=== PATIENT | female | born 1965 | race Caucasian/White ===

== ENCOUNTER 2018-06-08 14:21 | Inpatient (IN) ==
[2018-06-08 15:48] LABS: Baso % (Auto) 0.4 % (0.0-2.0); Eos # (Auto) 0.2 th/mm3 (0.0-0.4); Eos % (Auto) 2.7 % (0.0-4.0); Hematocrit 46.6 % (35.0-46.0); Lymph # (Auto) 2.1 th/mm3 (1.0-4.8); Lymph % (Auto) 30.6 % (9.0-44.0); Mean Corpuscular HGB Conc 34.4 % (32.0-36.0); Mean Corpuscular Hemoglobin 28.5 pg (27.0-34.0); Mean Platelet Volume 9.6 fL (7.0-11.0); Mono # (Auto) 0.6 th/mm3 (0.0-0.9); Mono % (Auto) 8.6 % (0.0-8.0); Neut % (Auto) 57.7 % (16.0-70.0); Platelet Count 256 th/mm3 (150-450); Red Blood Count 5.61 mil/mm3 (4.00-5.30)
[2018-06-08 16:00] LABS: Alanine Aminotransferase 46 U/L (10-53); Albumin 4.5 g/dL (3.4-5.0); Anion Gap 12 meq/L (5-15); Aspartate Aminotransferase 31 U/L (15-37); Blood Urea Nitrogen 12 mg/dL (7-18); Carbon Dioxide 27.8 meq/L (21.0-32.0); Chloride 102 meq/L (98-107); Glomerular Filtration Rate 60 mL/min (>89); Glucose,Random 85 mg/dL (74-106); Potassium 3.3 meq/L (3.5-5.1); Sodium 142 meq/L (136-145)
[2018-06-08 16:01] LABS: Alcohol 3 mg/dL (0-5)
[2018-06-08 16:09] LABS: Alkaline Phosphatase 153 U/L (45-117); Total Protein 8.5 g/dL (6.4-8.2)
--- NOTE | 2018-06-08 16:11 | ED ---
HPI General Chief Complaint: Psychiatric Symptoms Stated Complaint: Psych Eval/VCSO Time Seen by Provider: 06/08/18 15:16 Source: patient and other ( act report) Mode of arrival: ambulatory Limitations: no limitations History of Present Illness HPI Narrative: 53-year-old female presents to the emergency department under Anne act. She was Anne acted by her primary care doctor Kenya Ramos. According to the act report the patient has had years of depression, auditory hallucinations times 2 months, has made several plans for suicide, and has not kept follow-up appointments times 2 years. On examination of the patient patient states that she has been feeling down and depressed for 2-1/2 years after her 2-1/2 years ago. She has had instances where she dropped a bottle of pills in her hands and stared at them with thought of wanting to harm herself. She was on Celexa for her depression and has stopped taking it 2-1/2 weeks ago because she could not get her prescription refilled. Says her symptoms have worsened since not taking her Celexa. Denies suicidal or homicidal ideations. Denies history of suicidal attempts, although she has had thoughts and action. Denies auditory visual hallucinations. Reports occasional marijuana use. Occasional alcohol use. Denies tobacco use. No treatments tried. Aggravated by of and discontinuation of Celexa. No known relieving factors. Onset unknown. Duration chronic. Denies chest pain, shortness breath, abdominal pain, nausea, vomiting, change in urine or stool. History of hypertension and has not taken medication in 2 years. History of hypercholesterolemia and migraines. Primary CARE providers Dr. Kenya Ramos. No known allergies. Has no other medical complaints. No other modifying factors or associated signs and symptoms. Related Data Previous Rx's Medication Instructions Recorded amlodipine [Norvasc] 10 mg PO DAILY 30 Days #30 tab 06/12/18 atorvastatin [Lipitor] 10 mg PO HS 30 Days #30 tab 06/12/18 sertraline [Zoloft] 50 mg PO DAILY 30 Days #30 tab 06/12/18 Allergies Allergy/AdvReac Type Severity Reaction Status Date / Time No Known Allergies Allergy Verified 06/08/18 14:31 Review of Systems ROS: all other systems reviewed are negative [facility] Medical History Medical History Depression (Acute) High cholesterol (Acute) Hypertension (Acute) Migraines (Acute) Surgical History Surgical History Hx of appendectomy (Acute) Social History Social History Substance History: Past History Second Hand Smoke Exposure: No Smoking Status: Former smoker How Often Do You Have a Drink Containing Alcohol: Monthly or less Recent Travel in [facility] within the Last 8 Weeks: No Recent Out of Country Travel within the Last 8 Weeks: No Substance Abuse Detail Marijuana: Substance Use Status: Active Route Used Substance Abuse: Inhalation Last Used: 06/05/18 Immunization History Tetanus Immunization: Unsure Exam Narrative Exam Narrative: GENERAL: Well-nourished, well-developed female patient , in no acute distress SKIN: Warm and dry. HEAD: Atraumatic. Normocephalic. EYES: Pupils equal and round. ENT: Mucosa pink and moist. NECK: Supple. Trachea midline. CARDIOVASCULAR: Regular rate and rhythm. No murmur appreciated. RESPIRATORY: No accessory muscle use. Clear to auscultation. Breath sounds equal bilaterally. GASTROINTESTINAL: Abdomen soft, non-tender, nondistended. Hepatic and splenic margins not palpable. Bowel sounds are active 4 quadrants. MUSCULOSKELETAL: No obvious deformities. No clubbing. No cyanosis. No edema. BACK: No CVA tenderness. NEUROLOGICAL: Awake and alert. Oriented 3. No obvious cranial nerve deficits. Motor grossly within normal limits. Normal speech. Moves all extremities. 5/5 strength to all extremities. PSYCHIATRIC: No delusional thought processes. No hallucinations. Course Initial Documented Vital Signs Temperature 98.2 F 06/08/18 14:32 Pulse Rate 95 H 06/08/18 14:32 Respiratory Rate 16 06/08/18 14:32 Blood Pressure 137/91 H 06/08/18 14:32 Pulse Oximetry 98 06/08/18 14:32 Last Documented Vital Signs Temperature 97.7 F 06/12/18 04:57 Pulse Rate 89 06/12/18 04:57 Respiratory Rate 16 06/12/18 04:57 Blood Pressure 178/84 H 06/12/18 04:57 Pulse Oximetry 100 06/12/18 04:57 Medical Decision Making MDM Narrative Medical decision making narrative: Patient presents under a Anne act. Physical examination and vital signs are essentially unremarkable. Patient has no medical complaints to report. Psych screen has been ordered. If the laboratory results are unremarkable, the patient will be medically cleared for psychiatric evaluation and disposition. Medical Screen Exam Complete: Yes Emergency Medical Condition: Yes Differential Diagnosis Differential Diagnosis: Depression, anxiety, adjustment disorder, medical clearance for psychiatric evaluation Lab Data Result diagrams: 06/08/18 14:36 06/10/18 07:23 Lab Results 06/08/18 06/08/18 06/08/18 Range/Units 14:36 14:36 14:36 WBC 7.0 (4.0-11.0) th/mm3 RBC 5.61 H (4.00-5.30) mil/mm3 Hgb 16.0 H (11.6-15.3) gm/dL Hct 46.6 H (35.0-46.0) % MCV 83.0 (80.0-100.0) fL MCH 28.5 (27.0-34.0) pg MCHC 34.4 (32.0-36.0) % RDW 14.0 (11.6-17.2) % Plt Count 256 (150-450) th/mm3 MPV 9.6 (7.0-11.0) fL Neut % (Auto) 57.7 (16.0-70.0) % Lymph % (Auto) 30.6 (9.0-44.0) % [place] % (Auto) 8.6 H (0.0-8.0) % Eos % (Auto) 2.7 (0.0-4.0) % Baso % (Auto) 0.4 (0.0-2.0) % Neut # (Auto) 4.0 (1.8-7.7) th/mm3 Lymph # (Auto) 2.1 (1.0-4.8) th/mm3 [place] # (Auto) 0.6 (0.0-0.9) th/mm3 Eos # (Auto) 0.2 (0.0-0.4) th/mm3 Baso # (Auto) 0.0 (0.0-0.2) th/mm3 WBC Differential . Differential Comment Auto diff final Sodium 142 (136-145) meq/L Potassium 3.3 L (3.5-5.1) meq/L Chloride 102 (98-107) meq/L Carbon Dioxide 27.8 (21.0-32.0) meq/L Anion Gap 12 (5-15) meq/L BUN 12 (7-18) mg/dL Creatinine 0.97 (0.50-1.00) mg/dL Estimated GFR 60 L (>89) mL/min Random Glucose 85 (74-106) mg/dL Calcium 9.0 (8.5-10.1) mg/dL Total Bilirubin 0.4 (0.2-1.0) mg/dL AST 31 (15-37) U/L ALT 46 (10-53) U/L Alkaline Phosphatase 153 H (45-117) U/L Total Protein 8.5 H (6.4-8.2) g/dL Albumin 4.5 (3.4-5.0) g/dL Triglycerides (42-150) mg/dL Cholesterol (120-200) mg/dL LDL Cholesterol, Calc (0-99) mg/dL HDL Cholesterol (40.0-60.0) mg/dL Cholesterol/HDL Ratio Ratio TSH 2.180 (0.358-3.740) uIU/mL Salicylates Less than 1.7 L (2.8-20.0) mg/dL Urine Opiates Screen (Neg) Acetaminophen Less than 2.0 L (10.0-30.0) mcg/mL Ur Barbiturates Screen (Neg) Ur Amphetamines Screen (Neg) U Benzodiazepines Scrn (Neg) Urine Cocaine Screen (Neg) U Cannabinoids Screen (Neg) Serum Alcohol 3 (0-5) mg/dL 06/08/18 06/10/18 06/10/18 Range/Units 15:16 07:23 07:23 WBC (4.0-11.0) th/mm3 RBC (4.00-5.30) mil/mm3 Hgb (11.6-15.3) gm/dL Hct (35.0-46.0) % MCV (80.0-100.0) fL MCH (27.0-34.0) pg MCHC (32.0-36.0) % RDW (11.6-17.2) % Plt Count (150-450) th/mm3 MPV (7.0-11.0) fL Neut % (Auto) (16.0-70.0) % Lymph % (Auto) (9.0-44.0) % [place] % (Auto) (0.0-8.0) % Eos % (Auto) (0.0-4.0) % Baso % (Auto) (0.0-2.0) % Neut # (Auto) (1.8-7.7) th/mm3 Lymph # (Auto) (1.0-4.8) th/mm3 [place] # (Auto) (0.0-0.9) th/mm3 Eos # (Auto) (0.0-0.4) th/mm3 Baso # (Auto) (0.0-0.2) th/mm3 WBC Differential Differential Comment Sodium 141 (136-145) meq/L Potassium 3.5 (3.5-5.1) meq/L Chloride 104 (98-107) meq/L Carbon Dioxide 31.1 (21.0-32.0) meq/L Anion Gap 6 (5-15) meq/L BUN 9 (7-18) mg/dL Creatinine 0.80 (0.50-1.00) mg/dL Estimated GFR 75 L (>89) mL/min Random Glucose 100 (74-106) mg/dL Calcium 9.1 (8.5-10.1) mg/dL Total Bilirubin (0.2-1.0) mg/dL AST (15-37) U/L ALT (10-53) U/L Alkaline Phosphatase (45-117) U/L Total Protein (6.4-8.2) g/dL Albumin (3.4-5.0) g/dL Triglycerides 106 (42-150) mg/dL Cholesterol 205 H (120-200) mg/dL LDL Cholesterol, Calc 132 H (0-99) mg/dL HDL Cholesterol 51.6 (40.0-60.0) mg/dL Cholesterol/HDL Ratio 3.97 Ratio TSH (0.358-3.740) uIU/mL Salicylates (2.8-20.0) mg/dL Urine Opiates Screen Neg (Neg) Acetaminophen (10.0-30.0) mcg/mL Ur Barbiturates Screen Neg (Neg) Ur Amphetamines Screen Neg (Neg) U Benzodiazepines Scrn Pos H (Neg) Urine Cocaine Screen Neg (Neg) U Cannabinoids Screen Pos H (Neg) Serum Alcohol (0-5) mg/dL Discharge Plan Discharge Disposition Patient Disposition: 30 Still Patient Discharge Condition Condition: Stable Discharge Order Discharge Orders: Discharge Order (Routine); Ordered 06/12/18 Ordered By: Marlon Rubin Physicians Team ED Provider: Dioni Melendez ED Midlevel Provider: Marcelle Miller Primary Care Provider: Kenya Ramos Attending Provider: Marlon Rubin Other Providers: Danitar High Service Status ED Status: Left Department Discharge Information Discharge Date/Time: 06/08/18 20:15
[2018-06-08 16:29] LABS: Amphetamine Screen,Urine Neg (Neg); Barbiturate Screen,Urine Neg (Neg); Cannabinoid Screen,Urine Pos (Neg); Cocaine Screen,Urine Neg (Neg)
[2018-06-08 16:31] LABS: Opiate Screen,Urine Neg (Neg)
[2018-06-08] MEDS ORDERED: Aluminum/Magnesium/Simethacone Susp 30 ML UDC PO PRN (19:53)
[2018-06-08] MEDS ORDERED: Amitriptyline 25 MG Tablet PO SCH (21:00)
[2018-06-09] MEDS ORDERED: Influenza (Quadrivalent) Vaccine 0.5 ML Syringe IM ONE (00:45)
--- NOTE | 2018-06-09 11:42 | P.HPPSY ---
<Tania Manzo - Last Filed: 06/09/18 12:35> Provisional Diagnosis Admission Date: June 08, 2018 21:21 [place] I.: Major Depressive, Episode, Major Depression Disorder, Double Depression, Suicidal Ideation, [place] II.: deferred [place] III.: Hypertension, hypercholesterolemia [place] IV.: Father and aunt 10 years ago( 6 weeks apart) of 2 1/2 years ago [place] V.: 65 Competence Certification of Person's Competence To Provide Express and Informed Consent I have personally examined Parisa Crandall, a person being served at [facility] [email or web address]] on, June 09, 2018 1104. Express and informed consent means consent voluntarily given in writing, by a competent person, after sufficient explanation and disclosure of the subject matter involved to enable the person to make a knowing and willful decision without any element of force, fraud, deceit, duress, or other form of constraint or coercion. This person is 18 years of age or older, is not now known to be incompetent to consent to treatment with a guardian advocate, and does not have a health care surrogate or proxy currently making medical treatment decisions. I have found this person to be one of the following: [] Competent to provide express and informed consent, as defined above, for voluntary admission to this facility and is competent to provide express and informed consent for treatment. He/she has the consistent capacity to make well reasoned, willful, and knowing decisions concerning his or her medical or mental health treatment. The person fully and consistently understands the purpose of the admission for examination/placement and is fully capable of personally exercising all rights assured under [place] [] Incompetent to provide express and informed consent to voluntary admission, and this is incompetent to provide express and informed consent to treatment. The person must be transferred to involuntary status and a petition for a guardian advocate filed with the Circuit Court. [] Refusing to provide express and informed consent to voluntary admission but is competent to provide express and informed consent for treatment. The person must be discharged or transferred to involuntary status. Form shall be completed within 24 hours of a person's arrival at the receiving facility and filed in the clinical record of each person: 1. Admitted on a voluntary basis 2. Permitted to provide express and informed consent to his/her own treatment 3. Allowed to transfer from involuntary to voluntary status 4. Prior to permitting a person to consent to his or her own treatment after having been previously found incompetent to consent to treatment. History of Present Illness Capacity: Has capacity Chief Complaint: Ms. Meeks is here under the BA by her PCP History of Present Illness: Ms. Constantino Lawrence is a 53 year old female who comes to inpatient at [facility] under a BA by her PCP, Dr. Kenya Ramos. BA is due to depression, suicidal ideation, and auditroy hallucinations for the past 2 months. Her depression gbegan 10 years ago with the of her father and aunt, all within a few weeks of eachother. She was prescribed by her PCP an unknown dose citalopram. 2 1/2 years ago, her passed and was then perscribed 25 mg Xanx PRN nad her dose of citalopram was doubled. She at that time also went to Hospice counselling for 3 session, but stopped due to it "not being a good fit" for her. 2 weeks ago, her prescriptions of Xanax and citalopram ran-out. She states that her "senses feel amplified"-noises seem louder, lights are brighter, etc. She has had difficulty sleeping, decreased concentration, decreased enegery, anhedonia, and increased anxiety. She denies any previous physcial, sexuial or emotional abuse, denies elf-harm. suicidal ideation or attempts and denies an current SI or HI. Last week she began journelling, which seemed to help her depression. FMH: [id number] history if postive for an aunt with psychosis PMH: HTN, Hypercholestrolemia, migraines Surgical: appendectomy Social: reitired Special exceptional needs teacher, lives alone with 3 dogs, good social support from Sister and family in town, alcohol and marjuana use, previous cocaine use and tobacco use Legal: previous arrest in 80s due to stealing money from employer to buy cocaine Meds: amytriptyline, citalopram, Xanax ROS: diaphoresis, denies flight of ideas, denies agitation, denies increased irritablity, denies changes in bowel and bladder movements - Inpatient Certification I certify that the inpatient services were ordered in accordance with Medicare regulations governing the order. This includes certification that hospital inpatient services are reasonable and necessary and in the case of services not specified as inpatient-only under 42 CFR 419.22(n), that they are appropriately provided as inpatient services in accordance to with the 2-midnight benchmark under 43 CFR 412.3(e) I certify that inpatient psychiatric hospital services are medically necessary. Evaluation and treatment and/or diagnostic testing are expected to improve the patient's condition. The patient needs on a daily basis, active treatment furnished directly by or requiring the supervision of inpatient psychiatric facility personnel. PMFSH - History History Provided By: Patient - Medical History Medical History: Medical History (Last Reviewed 06/08/18 @ 16:28 by TALIA Trujillo) Depression High cholesterol Hypertension Migraines - Surgical History Surgical History: Surgical History (Last Updated 06/08/18 @ 14:36 by Gloria Steward) Hx of appendectomy - Tobacco History Second Hand Smoke Exposure: No Tobacco Use In Past 30 Days: No Smoking Status: Former smoker - Alcohol History How Often Do You Have a Drink Containing Alcohol: Monthly or less - Substance Use History Substance History: Past History - Substance Use Type Marijuana Status: Active Route Used: Inhalation Last Used: 06/05/18 Reason for Use: Sleep Crack/Cocaine Status: Sustained Remission Comment: Cocaine abuse not since the - Travel History Recent Travel in the [facility] Within the Last 8 Weeks: No Recent Travel Out of the Country Within the Last 8 Weeks: No - Immunization History Tetanus Immunization: >5 Years Hx Influenza Vaccine This Season: No Medications and Allergies Allergies Allergy/AdvReac Type Severity Reaction Status Date / Time No Known Allergies Allergy Verified 06/08/18 14:31 Home Medications Medication Instructions Recorded Confirmed Type alprazolam [Xanax] 0.5 mg PO PRN 06/08/18 06/08/18 History amitriptyline 25 mg PO HS 06/08/18 06/08/18 History Active Medications: Active Medications Acetaminophen (Tylenol) 650 mg PO Q4H PRN PRN Reason: Pain 1-5 or Temp >101F Al Hydrox/Mg Hydrox/Simethicone (Mag-Al Plus Susp Liq) 30 ml PO Q6H PRN PRN Reason: DYSPEPSIA Al Hydroxide/Mg Hydroxide (Milk Of Magnesia Liq) 30 ml PO DAILY PRN PRN Reason: CONSTIPATION Amitriptyline HCl (Elavil) 25 mg PO HS MARGE Last Admin: 06/08/18 21:19 Dose: 25 mg Diphenhydramine HCl (Benadryl) 50 mg PO Q6H PRN PRN Reason: For mild anxiety and/or EPS Diphenhydramine HCl (Benadryl Inj) 50 mg IM Q6H PRN PRN Reason: For mild anxiety and/or EPS Hydroxyzine HCl (Atarax) 50 mg PO Q6H PRN PRN Reason: ANXIETY Last Admin: 06/08/18 21:19 Dose: 50 mg Results - Labs CBC & Chem 7: 06/08/18 14:36 06/08/18 14:36 Labs: Laboratory Results - last 24 hr 06/08/18 06/08/18 06/08/18 14:36 14:36 14:36 WBC 7.0 RBC 5.61 H Hgb 16.0 H Hct 46.6 H MCV 83.0 MCH 28.5 MCHC 34.4 RDW 14.0 Plt Count 256 MPV 9.6 Neut % (Auto) 57.7 Lymph % (Auto) 30.6 [place] % (Auto) 8.6 H Eos % (Auto) 2.7 Baso % (Auto) 0.4 Neut # (Auto) 4.0 Lymph # (Auto) 2.1 [place] # (Auto) 0.6 Eos # (Auto) 0.2 Baso # (Auto) 0.0 WBC Differential . Differential Comment Auto diff final Sodium 142 Potassium 3.3 L Chloride 102 Carbon Dioxide 27.8 Anion Gap 12 BUN 12 Creatinine 0.97 Estimated GFR 60 L Random Glucose 85 Calcium 9.0 Total Bilirubin 0.4 AST 31 ALT 46 Alkaline Phosphatase 153 H Total Protein 8.5 H Albumin 4.5 TSH 2.180 Salicylates Less than 1.7 L Urine Opiates Screen Acetaminophen Less than 2.0 L Ur Barbiturates Screen Ur Amphetamines Screen U Benzodiazepines Scrn Urine Cocaine Screen U Cannabinoids Screen Serum Alcohol 3 06/08/18 15:16 WBC RBC Hgb Hct MCV MCH MCHC RDW Plt Count MPV Neut % (Auto) Lymph % (Auto) [place] % (Auto) Eos % (Auto) Baso % (Auto) Neut # (Auto) Lymph # (Auto) [place] # (Auto) Eos # (Auto) Baso # (Auto) WBC Differential Differential Comment Sodium Potassium Chloride Carbon Dioxide Anion Gap BUN Creatinine Estimated GFR Random Glucose Calcium Total Bilirubin AST ALT Alkaline Phosphatase Total Protein Albumin TSH Salicylates Urine Opiates Screen Neg Acetaminophen Ur Barbiturates Screen Neg Ur Amphetamines Screen Neg U Benzodiazepines Scrn Pos H Urine Cocaine Screen Neg U Cannabinoids Screen Pos H Serum Alcohol Exam Vital signs: Vital Signs 06/08/18 14:32 06/08/18 18:10 06/08/18 22:30 Temperature 98.2 F 97.9 F 98.3 F Pulse Rate 95 H 94 H 92 H Respiratory Rate 16 18 18 Blood Pressure 137/91 H 181/86 H 187/110 H Pulse Oximetry 98 100 99 06/09/18 06:00 Temperature 98.2 F Pulse Rate 91 H Respiratory Rate 18 Blood Pressure 165/85 H Pulse Oximetry 98 Intake & Output 06/08/18 06/09/18 06/09/18 18:59 06:59 18:59 Intake Total 240 / 240 Balance 240 / 240 Weight 99.79 kg 107.1 kg Intake: Oral 240 / 240 Other: Weight On Admission 107.1 kg - Constitutional no acute distress - Routine HEENT Exam Head: Present: normocephalic Eye: Present: EOMI, PERRL ENT: Present: mucous membranes moist - Routine Neurological Exam Present: alert, oriented X3 Mental Status Examination Appearance: Appropriate Consciousness: Alert Orientation: x4 Motor Activity: Normal gait Speech: Unremarkable Language: Adequate Fund of Knowledge: Adequate Attention and Concentration: Adequate Memory: Unremarkable Mood: Appropriate, Other (states that "i feel ok") Thought Process & Associations: Intact, Logical Thought Content: Appropriate Hallucination Type: None Delusion Type: None Suicidal Ideation: No Suicidal Plan: No Suicidal Intention: No Homicidal Ideation: No Homicidal Plan: No Homicidal Intention: No Insight: Adequate Judgment: Adequate Assessment and Plan - Plan Plan: Estimated LOS: [] days Prescribe Effexor 37.5 mg/ day if BP is controlled for depression and anxiety Prescibe Zoloft if BP is uncontrolled for depression and anxiety <Marlon Rubin - Last Filed: 06/10/18 05:58> Provisional Diagnosis Admission Date: June 08, 2018 21:21 [place] I.: Major depressive disorder [place] V.: 40 Competence Certification of Person's Competence To Provide Express and Informed Consent I have personally examined Parisa Rai Raz, a person being served at [facility] [[email or web address]] on, June 10, 2018 0535. Express and informed consent means consent voluntarily given in writing, by a competent person, after sufficient explanation and disclosure of the subject matter involved to enable the person to make a knowing and willful decision without any element of force, fraud, deceit, duress, or other form of constraint or coercion. This person is 18 years of age or older, is not now known to be incompetent to consent to treatment with a guardian advocate, and does not have a health care surrogate or proxy currently making medical treatment decisions. I have found this person to be one of the following: [xxx] Competent to provide express and informed consent, as defined above, for voluntary admission to this facility and is competent to provide express and informed consent for treatment. He/she has the consistent capacity to make well reasoned, willful, and knowing decisions concerning his or her medical or mental health treatment. The person fully and consistently understands the purpose of the admission for examination/placement and is fully capable of personally exercising all rights assured under [place] [] Incompetent to provide express and informed consent to voluntary admission, and this is incompetent to provide express and informed consent to treatment. The person must be transferred to involuntary status and a petition for a guardian advocate filed with the Circuit Court. [] Refusing to provide express and informed consent to voluntary admission but is competent to provide express and informed consent for treatment. The person must be discharged or transferred to involuntary status. Form shall be completed within 24 hours of a person's arrival at the receiving facility and filed in the clinical record of each person: 1. Admitted on a voluntary basis 2. Permitted to provide express and informed consent to his/her own treatment 3. Allowed to transfer from involuntary to voluntary status 4. Prior to permitting a person to consent to his or her own treatment after having been previously found incompetent to consent to treatment. History of Present Illness History of Present Illness: Patient is a 53-year-old woman, , domiciled alone, retired, with a past psychiatric history of depression, anxiety, no previous psychiatric admissions, no previous suicide attempt or self-injurious behavior with a substance use history significant for remote cocaine use, current marijuana use in the past medical history of hypertension hyperlipidemia who was brought under Anne act started by her primary care doctor due to worsening depressive symptoms, auditory hallucinations and recent suicidal ideation which patient was admitted to the inpatient psychiatry for further evaluation and management. As per Anne act patient seen by PCP, years of depression, auditory hallucinations for 2 months, suicidal plan. Patient was found in day room noted B, cooperative interviewed with medical student. Patient states that she had gone to refill her medications which pharmacy refused to fill until she was seen by her primary care doctor which prompted her visit. Upon evaluation by her primary care physician recent depressive symptoms along with suicide ideation, concern and place patient on a Anne act and was sent to the ED for further evaluation and management with subsequent admission to the inpatient psychiatry unit. Patient reports her sleep recently has been "up and down" reports decreased appetite and energy and concentration, with decrease pleasure in hobbies and activities, isolating more, denies any feelings of guilt but worsening depressive symptoms for the past 2 weeks. Patient reports feeling hopeless "a little" but denies feeling helpless. Patient also mentions having had suicide ideation for the past 2 weeks as well which on occasion had come close to overdosing which she had tablets in her hands but aborted the plan. Currently patient reports feeling "decent" denying any suicide ideation at this time, denies any homicidal ideation denying any perceptional disturbances or delusions during interview. Rest of psychiatric review of systems negative. Family psychiatric history: Patient reports that with psychotic disorder, denies suicide in the family Past psychiatric history: Previous psychiatric diagnoses depression, anxiety, no previous psychiatric admissions, previous suicide attempt or self-injurious behavior. Patient denies any history of abuse. Denies having mental health provider and his primary by primary care doctor. Patient reports having undergone a grief counseling 2 and half years ago after the of her . Previous medication trials include citalopram, alprazolam, amitriptyline. Substance use history: Remote use of cocaine, current marijuana use 3 times per week, reports alcohol use twice per month usually 3 or 4 drinks at a time. Past medical history: Hypertension, hyperlipidemia, migraines Allergies: NKDA Social history: , domiciled alone, unemployed, retired six years ago. - Inpatient Certification I certify that the inpatient services were ordered in accordance with Medicare regulations governing the order. This includes certification that hospital inpatient services are reasonable and necessary and in the case of services not specified as inpatient-only under 42 CFR 419.22(n), that they are appropriately provided as inpatient services in accordance to with the 2-midnight benchmark under 43 CFR 412.3(e) I certify that inpatient psychiatric hospital services are medically necessary. Evaluation and treatment and/or diagnostic testing are expected to improve the patient's condition. The patient needs on a daily basis, active treatment furnished directly by or requiring the supervision of inpatient psychiatric facility personnel. Estimated Total Length of Stay (Days): 7 Plans for Post Hospital Care: Not yet determined Review of Systems All other systems reviewed negative except as stated in HPI PMFSH - History History Provided By: Medical Record - Medical History Medical History: Medical History (Last Reviewed 06/08/18 @ 16:28 by TALIA Trujillo) Depression High cholesterol Hypertension Migraines - Surgical History Surgical History: Surgical History (Last Updated 06/08/18 @ 14:36 by Gloria Steward) Hx of appendectomy Quality Measures - Psychiatric History Psychological trauma history: denies Violence risk to others in the last 6 months: low Violence risk to self in the last 6 months: elevated due to recent suicidal ideation - Substance Abuse History Drug or alcohol use in the past 12 months: see HPI - Patient Strengths Patient's strengths (minimum of 2): verbal and communicative Medications and Allergies Active Medications: Active Medications Acetaminophen (Tylenol) 650 mg PO Q4H PRN PRN Reason: Pain 1-5 or Temp >101F Last Admin: 06/09/18 12:57 Dose: 650 mg Al Hydrox/Mg Hydrox/Simethicone (Mag-Al Plus Susp Liq) 30 ml PO Q6H PRN PRN Reason: DYSPEPSIA Last Admin: 06/09/18 21:11 Dose: 30 ml Al Hydroxide/Mg Hydroxide (Milk Of Magnesia Liq) 30 ml PO DAILY PRN PRN Reason: CONSTIPATION Amlodipine Besylate (Norvasc) 5 mg PO DAILY MARGE Diphenhydramine HCl (Benadryl) 50 mg PO HS PRN PRN Reason: INSOMNIA Last Admin: 06/09/18 21:11 Dose: 50 mg Lorazepam (Ativan) 1 mg PO Q6H PRN PRN Reason: ANXIETY Potassium Chloride (K-Dur) 20 meq PO DAILY MARGE Stop: 06/13/18 08:59 Sertraline HCl (Zoloft) 50 mg PO DAILY MARGE Results - Labs CBC & Chem 7: 06/08/18 14:36 06/08/18 14:36 Exam Vital signs: Vital Signs 06/09/18 06:00 Temperature 98.2 F Pulse Rate 91 H Respiratory Rate 18 Blood Pressure 165/85 H Pulse Oximetry 98 Intake & Output 06/09/18 06/09/18 06/10/18 06:59 18:59 06:59 Intake Total 240 / 240 Balance 240 / 240 Weight 107.1 kg Intake: Oral 240 / 240 Other: Weight On Admission 107.1 kg Narrative: Patient not noted to be in acute distress, no gross motor abnormalities, no signs of tremor or EPS, no psychomotor agitation or retardation. - Constitutional cooperative Mental Status Examination Mood: Other Affect: Sad Suicidal Ideation: No (Denies but is unreliable to contract for safety at this time) Insight: Fair Judgment: Impulsive Assessment and Plan - Assessment (1) Major depressive disorder Code(s): F32.9 - Major depressive disorder, single episode, unspecified Status : Acute - Plan Plan: Estimated LOS: [] days Patient is a 53-year-old woman who carries a diagnoses depression and anxiety with no previous psychiatric admissions, no previous suicide attempt or self-injurious behavior with a remote history of cocaine use, currently ongoing marijuana use who has been having worsening of depressive symptoms with suicidal ideation and having had recent aborted plan of overdose and continues to be at high risk for self-harm which patient requires inpatient psychiatric stabilization for safety. Patient currently has elevated risk for self-harm due to recent depressive symptoms, suicidal ideation with recent reported possible overdose, has genetic predisposition to mental illness due to history of psychiatric disorder family along with no current outpatient mental health follow-up, not engaged in treatment, limited social support current substance use (marijuana) not engaged in outpatient follow-up and current depressive symptoms affecting functioning which patient is an acute risk for self-harm. Patient will be admitted under voluntary admission, has capacity to consent for treatment. We will start patient on sertraline 25 mg x1 with 50 mg daily thereafter for depression. We will monitor mood and behavior. Social work intervention for psychosocial assessment. Hospitalist consult requested for evaluation of hypertension. EKG ordered. Discharge planning a progress. Justification for Continued Inpatient Stay: At risk of further decompensation at lower level care. <Marlon Rubin - Last Filed: 06/10/18 05:58> (1) Major depressive disorder Qualifiers: Major depression recurrence: recurrent Active/Remission status: currently active Major depression episode severity: severe Psychotic features: without psychotic features Qualified Code(s): F33.2 - Major depressive disorder, recurrent severe without psychotic features
[2018-06-09] MEDS ORDERED: LORazepam 1 MG Tablet PO PRN (12:00)
[2018-06-09] MEDS: Acetaminophen 325 MG Tablet PO PRN (12:57)
[2018-06-09] MEDS ORDERED: Sertraline 50 MG Tablet PO ONE (13:00)
[2018-06-09] MEDS ORDERED: amLODIPine 5 MG Tablet PO ONE (13:31)
--- NOTE | 2018-06-09 14:08 | P.CON ---
History of Present Illness Service: Hospitalist Consult date: 06/09/18 Requesting Physician: Marlon Rubin Reason for Consult: Hypertension Primary Care Provider: Kenya Ramos MD Chief Complaint: Hypertension History of Present Illness: Ms. Granger is a 53-year-old female who was brought to the emergency department under Anne act initiated by patient's primary care physician. Patient apparently has a history of depression, auditory hallucinations. She has contemplated on taking multiple medications in order to hurt herself. Patient apparently has a history of hypertension. However she has not taken her antihypertensive medications as well as statin in a long time. She also has a history of migraine as well as hypercholesterolemia. Hospital service was consulted for medical management. At the time of this interview, patient denies any chest pain, shortness of breath, fever or chills. Denies any changes in bowel or bladder habits. She denies any suicidal or homicidal ideations. Past medical history: Depression, hypertension, hyperlipidemia Past surgical history: Appendectomy Social history: Social drinker. Family history: Milligrams mother had stroke and heart attack. Father had lung cancer. Review of Systems All other systems reviewed negative except as stated in HPI PMFSH - History History Provided By: Patient - Medical History Medical History: Medical History (Last Reviewed 06/08/18 @ 16:28 by TALIA Trujillo) Depression High cholesterol Hypertension Migraines - Surgical History Surgical History: Surgical History (Last Updated 06/08/18 @ 14:36 by Gloria Steward) Hx of appendectomy - Tobacco History Second Hand Smoke Exposure: No Tobacco Use In Past 30 Days: No Smoking Status: Former smoker - Alcohol History How Often Do You Have a Drink Containing Alcohol: Monthly or less - Substance Use History Substance History: Past History - Substance Use Type Marijuana Status: Active Route Used: Inhalation Last Used: 06/05/18 Reason for Use: Sleep Crack/Cocaine Status: Sustained Remission Comment: Cocaine abuse not since the - Travel History Recent Travel in the [place] Within the Last 8 Weeks: No Recent Travel Out of the Country Within the Last 8 Weeks: No - Immunization History Tetanus Immunization: >5 Years Hx Influenza Vaccine This Season: No Medications and Allergies Active Medications: Active Medications Acetaminophen (Tylenol) 650 mg PO Q4H PRN PRN Reason: Pain 1-5 or Temp >101F Last Admin: 06/09/18 12:57 Dose: 650 mg Al Hydrox/Mg Hydrox/Simethicone (Mag-Al Plus Susp Liq) 30 ml PO Q6H PRN PRN Reason: DYSPEPSIA Al Hydroxide/Mg Hydroxide (Milk Of Magnesia Liq) 30 ml PO DAILY PRN PRN Reason: CONSTIPATION Diphenhydramine HCl (Benadryl) 50 mg PO HS PRN PRN Reason: INSOMNIA Lorazepam (Ativan) 1 mg PO Q6H PRN PRN Reason: ANXIETY Sertraline HCl (Zoloft) 50 mg PO DAILY MARGE Allergies Allergy/AdvReac Type Severity Reaction Status Date / Time No Known Allergies Allergy Verified 06/08/18 14:31 Home Medications Medication Instructions Recorded Confirmed Type alprazolam [Xanax] 0.5 mg PO PRN 06/08/18 06/08/18 History amitriptyline 25 mg PO HS 06/08/18 06/08/18 History Physical Exam Vital signs: Vital Signs 06/08/18 14:32 06/08/18 18:10 06/08/18 22:30 Temperature 98.2 F 97.9 F 98.3 F Pulse Rate 95 H 94 H 92 H Respiratory Rate 16 18 18 Blood Pressure 137/91 H 181/86 H 187/110 H Pulse Oximetry 98 100 99 06/09/18 06:00 Temperature 98.2 F Pulse Rate 91 H Respiratory Rate 18 Blood Pressure 165/85 H Pulse Oximetry 98 Intake & Output 06/08/18 06/09/18 06/09/18 18:59 06:59 18:59 Intake Total 240 / 240 Balance 240 / 240 Weight 99.79 kg 107.1 kg Intake: Oral 240 / 240 Other: Weight On Admission 107.1 kg Narrative: GENERAL: This is a well-nourished, well-developed patient, in no apparent distress. SKIN: No rashes, ecchymoses or lesions. Warm and dry. HEAD: Atraumatic. Normocephalic. No temporal or scalp tenderness. EYES: Pupils equal round and reactive. No injection or drainage. ENT: Nose without bleeding, purulent drainage or septal hematoma. Airway patent. NECK: Trachea midline. No lymphadenopathy. Supple, nontender, no meningeal signs. CARDIOVASCULAR: Regular rate and rhythm without murmurs, gallops, or rubs. No JVD. RESPIRATORY: Clear to auscultation. Breath sounds equal bilaterally. No wheezes , rales, or rhonchi. GASTROINTESTINAL: Abdomen soft, non-tender, nondistended. No guarding. MUSCULOSKELETAL: Extremities without clubbing, cyanosis, or edema. NEUROLOGICAL: Awake and alert. Cranial nerves II through XII intact. No focal neurological deficits. Normal speech. Assessment and Plan - Plan This is a 53-year-old female with history of depression, hypertension , hyperlipidemia who was sent to the hospital under Anne act by her primary care physician due to depression. Patient apparently has a history of hypertension and hyperlipidemia but has not been taking her medications for over 2 years. Hypertension -Will start patient on Amlodipine 5mg Qday. -Will add other anti-hypertensive meds as needed. Hyperlipidemia -Will obtain Lipid profile in the AM. -Based on lipid profile, we can consider statin. We can calculate ASCVD score to guide us statin dosing. Mild Hypokalemia - Will give supplemental KCL. Full code. Ambulation. Thank you for the consult. We will continue to follow this patient with you.
[2018-06-10] MEDS: Sertraline 50 MG Tablet PO SCH (08:52)
[2018-06-10] MEDS: amLODIPine 10 MG Tablet PO SCH (08:52)
[2018-06-10 08:53] LABS: Chol/HDL Ratio 3.97 Ratio; HDL Cholesterol 51.6 mg/dL (40.0-60.0)
[2018-06-10] MEDS ORDERED: amLODIPine 5 MG Tablet PO SCH (09:00)
[2018-06-10 09:05] LABS: Calcium 9.1 mg/dL (8.5-10.1); Carbon Dioxide 31.1 meq/L (21.0-32.0); Potassium 3.5 meq/L (3.5-5.1)
--- NOTE | 2018-06-10 13:25 | ECG ---
Date Performed: 06/09/2018 Time Performed: 14:08:34 PTAGE: 53 years EKG: Sinus rhythm LOW QRS VOLTAGE IN PRECORDIAL LEADS MODERATE VOLTAGE CRITERIA FOR LVH, CONSIDER NORMAL VARIANT INFER IOR MYOCARDIAL INFARCTION , OF INDETERMINATE AGE ABNORMAL ECG NO PREVIOUS TRACING DOCTOR: Adryan Mcclelland Interpretating Date/Time 06/10/2018 13:23:57
--- NOTE | 2018-06-10 15:27 | P.PNPSY ---
Subjective Chief Complaint: Ms. Meeks is here under the BA by her PCP Remarks: Reviewed electronic medical records and discussed case with staff. Follow-up was conducted in the patient's room with YULIANA Calloway present. Patient has signed a right of release. Her nurse reports that she has been compliant with her medications and had no behavioral disturbances patient reports that she is upset because "I do not belong here it is making me very depressed". She maintains that she does have some depression relative to her 's however she states, "I love my life I would not kill myself". She she offers her sister is collateral information, Kirstie Meeks [phone]. Patient reports that she is sleeping well and eating "okay". She does become tearful talking about her distress at being on the unit stating, "this was not what I expected". She reports that the other patients have been intrusive, sharing her story was with her, and telling her how she can prolong her stay should she choose. Mental Status Examination Appearance: Appropriate Consciousness: Alert Orientation: x4 Motor Activity: Normal gait Speech: Unremarkable Language: Adequate Fund of Knowledge: Adequate Attention and Concentration: Adequate Memory: Unremarkable Mood: Other Affect: Sad Thought Process & Associations: Intact, Logical Thought Content: Appropriate Hallucination Type: None Delusion Type: None Suicidal Ideation: No (Denies but is unreliable to contract for safety at this time) Suicidal Plan: No Suicidal Intention: No Homicidal Ideation: No Homicidal Plan: No Homicidal Intention: No Insight: Fair Judgment: Impulsive Assessment and Plan - Assessment (1) Major depressive disorder Code(s): F32.9 - Major depressive disorder, single episode, unspecified Status : Acute - Plan Plan: Patient has signed a right of release this morning. She will need to be reevaluated tomorrow. She claims that this was a misunderstanding with her PCP and reports that she has a good support system. Justification for Continued Inpatient Stay: Moving this patient to a less restrictive environment would likely result in decompensation. (1) Major depressive disorder Qualifiers: Major depression recurrence: recurrent Active/Remission status: currently active Major depression episode severity: severe Psychotic features: without psychotic features Qualified Code(s): F33.2 - Major depressive disorder, recurrent severe without psychotic features
--- NOTE | 2018-06-10 15:47 | P.PN ---
Subjective Interval history: Follow-up on patient with hypertension, dyslipidemia. Patient seen and examined. Patient denies any acute medical complaints. She denies any chest pain or shortness of breath. She denies any nausea, vomiting or abdominal pain. She denies any fever or chills. She is upset due to being uncomfortable with the other patients around her the things that are being said. Discussed with Ronny MELGAR, plans to move patient to [address] [place] [address]. Physical Exam Vital signs: Vital Signs 06/10/18 06:00 Temperature 98.3 F Pulse Rate 87 Respiratory Rate 16 Blood Pressure 151/81 H Pulse Oximetry 96 Intake & Output 06/09/18 06/10/18 06/10/18 18:59 06:59 18:59 Intake Total 240 / 240 Balance 240 / 240 Intake: Oral 240 / 240 Narrative: GENERAL: This is a well-nourished, well-developed female patient, in no apparent distress. Awake and alert. SKIN: No rashes, ecchymoses or lesions. Warm and dry. HEAD: Atraumatic. Normocephalic. EYES: Pupils equal round and reactive. No injection or drainage. ENT: Nose without bleeding or purulent drainage. Airway patent. NECK: Trachea midline. CARDIOVASCULAR: Regular rate and rhythm without murmurs, gallops, or rubs. RESPIRATORY: Clear to auscultation. Breath sounds equal bilaterally. No wheezes , rales, or rhonchi. GASTROINTESTINAL: Abdomen soft, non-tender, nondistended. No guarding. MUSCULOSKELETAL: Extremities without clubbing, cyanosis, or edema. NEUROLOGICAL: Awake and alert. Cranial nerves II through XII intact. No focal neurological deficits. Normal speech. PSYCHIATRIC: Appropriate mood and affect. Calm and cooperative. Results - Labs CBC & Chem 7: 06/08/18 14:36 06/10/18 07:23 Laboratory Results - last 24 hr 06/10/18 06/10/18 07:23 07:23 Sodium 141 Potassium 3.5 Chloride 104 Carbon Dioxide 31.1 Anion Gap 6 BUN 9 Creatinine 0.80 Estimated GFR 75 L Random Glucose 100 Calcium 9.1 Triglycerides 106 Cholesterol 205 H LDL Cholesterol, Calc 132 H HDL Cholesterol 51.6 Cholesterol/HDL Ratio 3.97 Assessment and Plan - Plan 53-year-old female with history of depression, hypertension, hyperlipidemia who was sent to the hospital under Anne act by her primary care physician due to depression. Patient apparently has a history of hypertension and hyperlipidemia but has not been taking her medications for over 2 years. Hypertension, not well controlled -We will increase amlodipine to 10 mg daily -Continue to monitor BP and adjust treatment accordingly -Discussed with patient the possibility that at least in part her elevated BP may be situational and recommended that she follow-up with home BP checks/ keep BP log and follow-up with primary care physician for any dose adjustment as indicated Hyperlipidemia Chol 205, LDL 132, HDL 51.6 -per ASCVD, patient has 39% lifetime risk. She was on low dose statin prior to running out of her meds 2yrs ago and would like to resume. Will start on Atorvastatin 10mg daily. -Patient would need to have her lipid profile rechecked in 3 months Mild Hypokalemia - resolved s/p repletion - continue on K 20meq x 3 days DVT prophylaxis -Patient is ambulatory Patient appears stable from hospitalist perspective. [facility] will sign off. Please reconsult if needed. Discussed Condition With: patient, nursing staff
[2018-06-10] MEDS: Acetaminophen 325 MG Tablet PO PRN (16:46)
[2018-06-11] MEDS: Sertraline 50 MG Tablet PO SCH (08:42)
[2018-06-11] MEDS: amLODIPine 10 MG Tablet PO SCH (08:42)
--- NOTE | 2018-06-11 11:35 | P.PNPSY ---
Subjective Chief Complaint: Ms. Meeks is here under the BA by her PCP Remarks: Reviewed electronic medical records and discussed case with staff. Follow-up was conducted in the hallway with YULIANA Calloway present. Patient signed a right of release yesterday and rescinded the ROR today. She is compliant with her medications. She states that she is feeling alot better. Nursing staff shared that her 2 1/2 years ago and she is still working through her loss. She is very pleasant and is looking forward to outpatient care. Review of Systems All other systems reviewed negative except as stated in HPI Mental Status Examination Appearance: Appropriate Consciousness: Alert Orientation: x4 Motor Activity: Normal gait Speech: Unremarkable Language: Adequate Fund of Knowledge: Adequate Attention and Concentration: Adequate Memory: Unremarkable Mood: Appropriate Affect: Sad Thought Process & Associations: Intact, Logical Thought Content: Appropriate Hallucination Type: None Delusion Type: None Suicidal Ideation: No Suicidal Plan: No Suicidal Intention: No Homicidal Ideation: No Homicidal Plan: No Homicidal Intention: No Insight: Adequate Judgment: Adequate Assessment and Plan - Assessment (1) Major depression Code(s): F32.9 - Major depressive disorder, single episode, unspecified Status : Acute - Plan Plan: Continue current plan of care. Patient will see Psychiatrist on Tuesday. Justification for Continued Inpatient Stay: Moving patient to a less restrictive environment may result in her decompensation.
[2018-06-11] MEDS: Acetaminophen 325 MG Tablet PO PRN (14:40)
[2018-06-12 04:58] VITALS: BP 178/84; PULSE 89; RESP 16; TEMP 97.7; O2SAT 100
[2018-06-12] MEDS: amLODIPine 10 MG Tablet PO SCH (08:55)
[2018-06-12] MEDS: Sertraline 50 MG Tablet PO SCH (08:55)
--- NOTE | 2018-06-12 15:35 | P.TTN ---
- Patient Problems Problems: 1. Discharge planning 2. Medication compliance 3. Knowledge deficit 4. Lack of coping skills - Progress Toward Goals Provider Present: Dr. Makayla Wynn, Dr. Meagan Rubin Provider Input: 06/12/18: Discharge home today Nurse(s) Present: Oswaldo RN Nurse Input: 06/12/18: Denies suicidal ideations, appropriate with staff. sleeps well. Psychiatric Counselors Present: Robbi Smith Jr., [facility], Christiane Ochoa, [facility] Psychiatric Therapist Input: 06/12/18: Patient will be discharged home today.Patient has strong family support. Group Spec/RT/OT/MICHAEL Present: Milagros Asif, GPS, Yunior Lainez, OT Group Spec/RT/OT/MICHAEL Input: 06/12/18: Pt attends the group activities, social with peers. - Discharge Plan 06/12/18: Discharge home today. - Documentation Scribe: Milagros Asif Teaching Recipient: Patient
--- NOTE | 2018-06-12 16:29 | P.DSPSY ---
Psychiatry Discharge Summary Inpatient Psychiatric care?: Yes Advance Directives: No Mental Health Advance Directive: No Health Care Proxy: No - Admission Admission Date: June 08, 2018 21:21 - Admission Diagnosis (1) Major depressive disorder Code(s): F32.9 - Major depressive disorder, single episode, unspecified Brief History: Patient is a 53-year-old woman, , domiciled alone, retired, with a past psychiatric history of depression, anxiety, no previous psychiatric admissions, no previous suicide attempt or self-injurious behavior with a substance use history significant for remote cocaine use, current marijuana use in the past medical history of hypertension hyperlipidemia who was brought under Anne act started by her primary care doctor due to worsening depressive symptoms, auditory hallucinations and recent suicidal ideation which patient was admitted to the inpatient psychiatry for further evaluation and management. As per Anne act patient seen by PCP, years of depression, auditory hallucinations for 2 months, suicidal plan. Patient was found in day room noted B, cooperative interviewed with medical student. Patient states that she had gone to refill her medications which pharmacy refused to fill until she was seen by her primary care doctor which prompted her visit. Upon evaluation by her primary care physician recent depressive symptoms along with suicide ideation, concern and place patient on a Anne act and was sent to the ED for further evaluation and management with subsequent admission to the inpatient psychiatry unit. Patient reports her sleep recently has been "up and down" reports decreased appetite and energy and concentration, with decrease pleasure in hobbies and activities, isolating more, denies any feelings of guilt but worsening depressive symptoms for the past 2 weeks. Patient reports feeling hopeless "a little" but denies feeling helpless. Patient also mentions having had suicide ideation for the past 2 weeks as well which on occasion had come close to overdosing which she had tablets in her hands but aborted the plan. Currently patient reports feeling "decent" denying any suicide ideation at this time, denies any homicidal ideation denying any perceptional disturbances or delusions during interview. Rest of psychiatric review of systems negative. Family psychiatric history: Patient reports that with psychotic disorder, denies suicide in the family Past psychiatric history: Previous psychiatric diagnoses depression, anxiety, no previous psychiatric admissions, previous suicide attempt or self-injurious behavior. Patient denies any history of abuse. Denies having mental health provider and his primary by primary care doctor. Patient reports having undergone a grief counseling 2 and half years ago after the of her . Previous medication trials include citalopram, alprazolam, amitriptyline. Substance use history: Remote use of cocaine, current marijuana use 3 times per week, reports alcohol use twice per month usually 3 or 4 drinks at a time. Past medical history: Hypertension, hyperlipidemia, migraines Allergies: NKDA Social history: , domiciled alone, unemployed, retired six years ago. Tobacco Use In Past 30 Days: No How Often Do You Have a Drink Containing Alcohol: Monthly or less Hospital Course: Patient is a 53-year-old woman, , domiciled alone, retired, with a past psychiatric history of depression, anxiety, no previous psychiatric admissions, no previous suicide attempt or self-injurious behavior with a substance use history significant for remote cocaine use, current marijuana use in the past medical history of hypertension hyperlipidemia who was brought under Anne act started by her primary care doctor due to worsening depressive symptoms, auditory hallucinations and recent suicidal ideation which patient was admitted to the inpatient psychiatry for further evaluation and management. Patient was admitted to a locked, inpatient psychiatric unit. Appropriate precautions were in place throughout patient's hospital stay. Patient was seen and examined on the unit by psychiatry. Psychotropic medications were adjusted. There was no evidence of any suicidality or homicidality on the inpatient unit. Patient's mood improved with the benefit of psychopharmacological treatment and had no behavioral disturbance since admission. Patient was noted to have reached stable mood, noted to participate and engage in treatment and interact with staff adequately. Patient noted to be future oriented with plans to continue treatment and outpatient follow-up appointments for continuity of care. Counselor has arranged discharge plan. On the day of discharge: Patient seen and examined; chart reviewed. Case discussed with nurse and counselor. No behavioral issues overnight. On my examination today, the patient denies any suicidal homicidal ideation, intent or plan on direct questioning and contracts for safety. Patient denies any perceptional disturbances and no delusional material verbalized today. Patient denies any side effects from medication and has understanding of medication regimen and education. No physical complaints. Suicide and violence risk assessment on day of discharge both suggest lower imminent risk, and the patient 's level of function is adequate for plan level of outpatient care. Patient has maximized benefit from this inpatient psychiatric hospital stay and will be discharged with discharge plan as arranged by counselor. Patient advised to return to psychiatric emergency room for any concerning psychiatric symptoms. Patient agrees with plan. - Discharge Discharge Date: 06/12/18 - Discharge Diagnosis (1) Major depressive disorder Code(s): F32.9 - Major depressive disorder, single episode, unspecified Status : Acute Discharge Disposition: Home - Discharge Instructions Discharge Diet: Heart Healthy Diet Activities You Can Perform: Regular- No Restrictions - Discharge Time > 30 minutes Mental Status Examination Appearance: Appropriate Consciousness: Alert Orientation: x4 Motor Activity: Normal gait Speech: Unremarkable Language: Adequate Fund of Knowledge: Adequate Attention and Concentration: Adequate Memory: Unremarkable Mood: Appropriate Affect: Appropriate Thought Process & Associations: Intact, Logical Thought Content: Appropriate Hallucination Type: None Delusion Type: None Suicidal Ideation: No Suicidal Plan: No Suicidal Intention: No Homicidal Ideation: No Homicidal Plan: No Homicidal Intention: No Insight: Adequate Judgment: Adequate Discharge/Advance Care Plan - Results Vital Signs: Last Vital Signs Temp 97.7 F 06/12/18 04:57 Pulse 89 06/12/18 04:57 Resp 16 06/12/18 04:57 BP 178/84 H 06/12/18 04:57 Pulse Ox 100 06/12/18 04:57 Lab Results: Laboratory Results Triglycerides 106 mg/dL (42-150) 06/10/18 07:23 Cholesterol 205 mg/dL (120-200) H 06/10/18 07:23 LDL Cholesterol, Calc 132 mg/dL (0-99) H 06/10/18 07:23 HDL Cholesterol 51.6 mg/dL (40.0-60.0) 06/10/18 07:23 TSH 2.180 uIU/mL (0.358-3.740) 06/08/18 14:36 Summary of Procedures: none Pending Results: None - Medications Number of antipsychotic medications at discharge: 0 - Discharge Care Plan Goals to Promote Your Health: * To prevent worsening of your condition and complications * To maintain your health at the optimal level Directions to Meet Your Goals: Take your medications as prescribed Follow your dietary instruction Follow activity as directed Keep your appointments as scheduled Take your immunizations and boosters as scheduled If your symptoms worsen call your PCP, if no PCP go to Urgent Care Center or Emergency Room For 21/03 questions related to your inpatient stay or results of tests pending at discharge, please contact Dr. Marlon Rubin MD at Smoking is Dangerous to Your Health. Avoid second hand smoking (1) Major depressive disorder Qualifiers: Major depression recurrence: recurrent Active/Remission status: currently active Major depression episode severity: severe Psychotic features: without psychotic features Qualified Code(s): F33.2 - Major depressive disorder, recurrent severe without psychotic features (1) Major depressive disorder Qualifiers: Major depression recurrence: recurrent Active/Remission status: currently active Major depression episode severity: severe Psychotic features: without psychotic features Qualified Code(s): F33.2 - Major depressive disorder, recurrent severe without psychotic features
== END 2018-06-12 18:30 | disposition home or self-care (01) ==
LOC: NEPJ 14:21 → H260 20:15 → NEDA 21:21 → H260 22:30
PROVIDERS: ADMIT Student in an Organized Health Care Education/Training Program; ATTEND Student in an Organized Health Care Education/Training Program